=== PATIENT | female | born 1950 | race American Indian/Alaskan Native ===

== ENCOUNTER 2017-05-05 09:00 | Day surgery (SDC) | payer OTHER, MEDICARE ==
[~2017-05-05 09:00] MED LIST: ARA20T PO; CHOL100046 PO; CYCL-1 PO; ERGO500014 PO; LEVO25TA2 PO; NORCO10T PO; PANT40TA39 PO; PRE1T PO; RES15C PO
[2017-05-05] MEDS ORDERED: LIDOcaine 2% 5ml jelly ONE ×2 (09:36→09:58)
== END 2017-05-05 10:14 | disposition home or self-care (01) ==
LOC: WOUND CARE 09:00
PROVIDERS: ATTEND Surgery
DX: T87.89 Other complications of amputation stump (principal); E11.622 Type 2 diabetes mellitus with other skin ulcer; L89.893 Pressure ulcer of other site, stage 3; L98.491 Non-pressure chronic ulcer of skin of other sites limited to breakdown of skin; I87.2 Venous insufficiency (chronic) (peripheral); E11.40 Type 2 diabetes mellitus with diabetic neuropathy, unspecified; M19.90 Unspecified osteoarthritis, unspecified site; M81.0 Age-related osteoporosis without current pathological fracture; K21.9 Gastro-esophageal reflux disease without esophagitis; E03.9 Hypothyroidism, unspecified; F17.210 Nicotine dependence, cigarettes, uncomplicated; Y83.5 Amputation of limb(s) as the cause of abnormal reaction of the patient, or of later complication, without mention of misadventure at the time of the procedure
CPT/HCPCS: 11042; 87070; 87075; 87077; 87102; 87186; A6021; A6206; A6212

== ENCOUNTER 2017-05-12 09:00 | Day surgery (SDC) | payer OTHER, MEDICARE ==
[2017-05-12] MEDS ORDERED: LIDOcaine 2% 5ml jelly ONE (09:44)
[2017-05-12] MEDS ORDERED: DOXY-1 (15:23)
== END 2017-05-12 10:46 | disposition home or self-care (01) ==
LOC: WOUND CARE 09:00
PROVIDERS: ATTEND Surgery
DX: T87.89 Other complications of amputation stump (principal); E11.622 Type 2 diabetes mellitus with other skin ulcer; L98.491 Non-pressure chronic ulcer of skin of other sites limited to breakdown of skin; L89.893 Pressure ulcer of other site, stage 3; E11.40 Type 2 diabetes mellitus with diabetic neuropathy, unspecified; I87.2 Venous insufficiency (chronic) (peripheral); M19.90 Unspecified osteoarthritis, unspecified site; M81.0 Age-related osteoporosis without current pathological fracture; K21.9 Gastro-esophageal reflux disease without esophagitis; E03.9 Hypothyroidism, unspecified; F17.210 Nicotine dependence, cigarettes, uncomplicated; Y83.5 Amputation of limb(s) as the cause of abnormal reaction of the patient, or of later complication, without mention of misadventure at the time of the procedure
CPT/HCPCS: 97597; A6021; A6206; A6212

== ENCOUNTER 2017-05-19 08:20 | Outpatient (CLI) | payer OTHER, MEDICARE ==
[~2017-05-19 08:20] MED LIST changes: +DOXY-1
== END 2017-05-19 09:10 | disposition home or self-care (01) ==
LOC: WOUND CARE 08:20 → EDSTATUS 09:00 → WOUND CARE 09:10
PROVIDERS: ATTEND Surgery
DX: T87.89 Other complications of amputation stump (principal); E11.622 Type 2 diabetes mellitus with other skin ulcer; L98.491 Non-pressure chronic ulcer of skin of other sites limited to breakdown of skin; I87.2 Venous insufficiency (chronic) (peripheral); E11.40 Type 2 diabetes mellitus with diabetic neuropathy, unspecified; M19.90 Unspecified osteoarthritis, unspecified site; M81.0 Age-related osteoporosis without current pathological fracture; K21.9 Gastro-esophageal reflux disease without esophagitis; E03.9 Hypothyroidism, unspecified; F17.210 Nicotine dependence, cigarettes, uncomplicated; Y83.5 Amputation of limb(s) as the cause of abnormal reaction of the patient, or of later complication, without mention of misadventure at the time of the procedure
CPT/HCPCS: 99211; A6021; A6212

== ENCOUNTER 2017-05-26 08:56 | Day surgery (SDC) | payer OTHER, MEDICARE | END 2017-05-26 10:01 | disposition home or self-care (01) | LOC: WOUND CARE 08:56 | PROVIDERS: ATTEND Surgery | DX: T87.89 Other complications of amputation stump (principal); E11.622 Type 2 diabetes mellitus with other skin ulcer; L89.893 Pressure ulcer of other site, stage 3; L98.491 Non-pressure chronic ulcer of skin of other sites limited to breakdown of skin; I87.2 Venous insufficiency (chronic) (peripheral); E11.40 Type 2 diabetes mellitus with diabetic neuropathy, unspecified; M19.90 Unspecified osteoarthritis, unspecified site; M81.0 Age-related osteoporosis without current pathological fracture; K21.9 Gastro-esophageal reflux disease without esophagitis; E03.9 Hypothyroidism, unspecified; F17.210 Nicotine dependence, cigarettes, uncomplicated; Y83.5 Amputation of limb(s) as the cause of abnormal reaction of the patient, or of later complication, without mention of misadventure at the time of the procedure | CPT/HCPCS: 97597; A6021; A6206; A6212 ==

== ENCOUNTER 2017-06-02 08:45 | Day surgery (SDC) | payer OTHER, MEDICARE | END 2017-06-02 10:22 | disposition home or self-care (01) | LOC: WOUND CARE 08:45 | PROVIDERS: ATTEND Surgery | DX: T87.89 Other complications of amputation stump (principal); E11.622 Type 2 diabetes mellitus with other skin ulcer; L89.893 Pressure ulcer of other site, stage 3; L98.491 Non-pressure chronic ulcer of skin of other sites limited to breakdown of skin; I87.2 Venous insufficiency (chronic) (peripheral); E11.40 Type 2 diabetes mellitus with diabetic neuropathy, unspecified; M19.90 Unspecified osteoarthritis, unspecified site; M81.0 Age-related osteoporosis without current pathological fracture; K21.9 Gastro-esophageal reflux disease without esophagitis; E03.9 Hypothyroidism, unspecified; F17.210 Nicotine dependence, cigarettes, uncomplicated; Y83.5 Amputation of limb(s) as the cause of abnormal reaction of the patient, or of later complication, without mention of misadventure at the time of the procedure | CPT/HCPCS: 97597; A6021; A6212; A6222; A4456 ==

== ENCOUNTER 2017-06-09 09:00 | Day surgery (SDC) | payer OTHER, MEDICARE ==
[2017-06-09] MEDS ORDERED: LIDOcaine 2% 5ml jelly TOP ONE (10:20)
== END 2017-06-09 09:56 | disposition home or self-care (01) ==
LOC: WOUND CARE 09:00
PROVIDERS: ATTEND Surgery
DX: T87.89 Other complications of amputation stump (principal); E11.622 Type 2 diabetes mellitus with other skin ulcer; L89.893 Pressure ulcer of other site, stage 3; L98.491 Non-pressure chronic ulcer of skin of other sites limited to breakdown of skin; I87.2 Venous insufficiency (chronic) (peripheral); E11.40 Type 2 diabetes mellitus with diabetic neuropathy, unspecified; M19.90 Unspecified osteoarthritis, unspecified site; M81.0 Age-related osteoporosis without current pathological fracture; K21.9 Gastro-esophageal reflux disease without esophagitis; E03.9 Hypothyroidism, unspecified; F17.210 Nicotine dependence, cigarettes, uncomplicated; Y83.5 Amputation of limb(s) as the cause of abnormal reaction of the patient, or of later complication, without mention of misadventure at the time of the procedure
CPT/HCPCS: 97597; A6021; A6206; A6212

== ENCOUNTER 2017-06-16 09:44 | Day surgery (SDC) | payer OTHER, MEDICARE ==
[2017-06-16] MEDS ORDERED: LIDOcaine 2% 5ml jelly ONE (10:13)
== END 2017-06-16 11:24 | disposition home or self-care (01) ==
LOC: WOUND CARE 09:44
PROVIDERS: ATTEND Surgery
DX: T87.89 Other complications of amputation stump (principal); E11.622 Type 2 diabetes mellitus with other skin ulcer; L89.893 Pressure ulcer of other site, stage 3; L98.491 Non-pressure chronic ulcer of skin of other sites limited to breakdown of skin; I87.2 Venous insufficiency (chronic) (peripheral); E11.40 Type 2 diabetes mellitus with diabetic neuropathy, unspecified; M19.90 Unspecified osteoarthritis, unspecified site; M81.0 Age-related osteoporosis without current pathological fracture; K21.9 Gastro-esophageal reflux disease without esophagitis; E03.9 Hypothyroidism, unspecified; F17.210 Nicotine dependence, cigarettes, uncomplicated; Y83.5 Amputation of limb(s) as the cause of abnormal reaction of the patient, or of later complication, without mention of misadventure at the time of the procedure
CPT/HCPCS: 11042; A6021; A6206; A6212

== ENCOUNTER 2017-06-23 08:45 | Day surgery (SDC) | payer OTHER, MEDICARE ==
[2017-06-23] MEDS ORDERED: LIDOcaine 2% 5ml jelly ONE (09:43)
== END 2017-06-23 10:34 | disposition home or self-care (01) ==
LOC: WOUND CARE 08:45
PROVIDERS: ATTEND Surgery
DX: T87.89 Other complications of amputation stump (principal); E11.622 Type 2 diabetes mellitus with other skin ulcer; L89.893 Pressure ulcer of other site, stage 3; L98.492 Non-pressure chronic ulcer of skin of other sites with fat layer exposed; I87.2 Venous insufficiency (chronic) (peripheral); E11.40 Type 2 diabetes mellitus with diabetic neuropathy, unspecified; M19.90 Unspecified osteoarthritis, unspecified site; M81.0 Age-related osteoporosis without current pathological fracture; K21.9 Gastro-esophageal reflux disease without esophagitis; E03.9 Hypothyroidism, unspecified; F17.210 Nicotine dependence, cigarettes, uncomplicated; Y83.5 Amputation of limb(s) as the cause of abnormal reaction of the patient, or of later complication, without mention of misadventure at the time of the procedure
CPT/HCPCS: A6209; A6213; A6222; C5271; Q4102

== ENCOUNTER 2017-06-30 08:52 | Day surgery (SDC) | payer OTHER, MEDICARE ==
[2017-06-30] MEDS ORDERED: LIDOcaine 2% 5ml jelly ONE (09:31)
== END 2017-06-30 10:28 | disposition home or self-care (01) ==
LOC: WOUND CARE 08:52
PROVIDERS: ATTEND Surgery
DX: T87.89 Other complications of amputation stump (principal); E11.622 Type 2 diabetes mellitus with other skin ulcer; L89.893 Pressure ulcer of other site, stage 3; L98.492 Non-pressure chronic ulcer of skin of other sites with fat layer exposed; I87.2 Venous insufficiency (chronic) (peripheral); E11.40 Type 2 diabetes mellitus with diabetic neuropathy, unspecified; M19.90 Unspecified osteoarthritis, unspecified site; M81.0 Age-related osteoporosis without current pathological fracture; K21.9 Gastro-esophageal reflux disease without esophagitis; E03.9 Hypothyroidism, unspecified; F17.210 Nicotine dependence, cigarettes, uncomplicated; Y83.5 Amputation of limb(s) as the cause of abnormal reaction of the patient, or of later complication, without mention of misadventure at the time of the procedure
CPT/HCPCS: A6206; A6213; C5271; Q4102; A6250

== ENCOUNTER 2017-07-07 09:05 | Day surgery (SDC) | payer OTHER, MEDICARE ==
[2017-07-07] MEDS ORDERED: LIDOcaine 2% 5ml jelly ONE (09:31)
== END 2017-07-07 10:10 | disposition home or self-care (01) ==
LOC: WOUND CARE 09:05
PROVIDERS: ATTEND Surgery
DX: T87.89 Other complications of amputation stump (principal); E11.622 Type 2 diabetes mellitus with other skin ulcer; L89.893 Pressure ulcer of other site, stage 3; L98.492 Non-pressure chronic ulcer of skin of other sites with fat layer exposed; E11.40 Type 2 diabetes mellitus with diabetic neuropathy, unspecified; I87.2 Venous insufficiency (chronic) (peripheral); M19.90 Unspecified osteoarthritis, unspecified site; M81.0 Age-related osteoporosis without current pathological fracture; K21.9 Gastro-esophageal reflux disease without esophagitis; E03.9 Hypothyroidism, unspecified; F17.210 Nicotine dependence, cigarettes, uncomplicated; Y83.5 Amputation of limb(s) as the cause of abnormal reaction of the patient, or of later complication, without mention of misadventure at the time of the procedure
CPT/HCPCS: A6206; A6213; C5271; Q4102; A6250

== ENCOUNTER 2017-07-14 08:30 | Day surgery (SDC) | payer OTHER, MEDICARE ==
[2017-07-14] MEDS ORDERED: LIDOcaine 2% 5ml jelly ONE (09:34)
[2017-07-14] MEDS ORDERED: LIDOcaine 1%/PF (10mg/ml) 5ml vial ONE (09:48)
== END 2017-07-14 10:07 | disposition home or self-care (01) ==
LOC: WOUND CARE 08:30
PROVIDERS: ATTEND Surgery
DX: T87.89 Other complications of amputation stump (principal); E11.622 Type 2 diabetes mellitus with other skin ulcer; L89.893 Pressure ulcer of other site, stage 3; L98.492 Non-pressure chronic ulcer of skin of other sites with fat layer exposed; I87.2 Venous insufficiency (chronic) (peripheral); E11.40 Type 2 diabetes mellitus with diabetic neuropathy, unspecified; M19.90 Unspecified osteoarthritis, unspecified site; M81.0 Age-related osteoporosis without current pathological fracture; K21.9 Gastro-esophageal reflux disease without esophagitis; E03.9 Hypothyroidism, unspecified; F17.210 Nicotine dependence, cigarettes, uncomplicated; Y83.5 Amputation of limb(s) as the cause of abnormal reaction of the patient, or of later complication, without mention of misadventure at the time of the procedure
CPT/HCPCS: A6206; A6212; C5271; J2001; Q4102; A6250

== ENCOUNTER 2017-07-21 08:20 | Outpatient (CLI) | payer OTHER, MEDICARE ==
[2017-07-21] MEDS ORDERED: LIDOcaine 2% 5ml jelly ONE (09:37)
== END 2017-07-21 10:06 | disposition home or self-care (01) ==
LOC: WOUND CARE 08:20 → EDSTATUS 08:30 → WOUND CARE 10:06
PROVIDERS: ATTEND Surgery
DX: T87.89 Other complications of amputation stump (principal); E11.622 Type 2 diabetes mellitus with other skin ulcer; L89.893 Pressure ulcer of other site, stage 3; L98.491 Non-pressure chronic ulcer of skin of other sites limited to breakdown of skin; I87.2 Venous insufficiency (chronic) (peripheral); E11.40 Type 2 diabetes mellitus with diabetic neuropathy, unspecified; M19.90 Unspecified osteoarthritis, unspecified site; M81.0 Age-related osteoporosis without current pathological fracture; K21.9 Gastro-esophageal reflux disease without esophagitis; E03.9 Hypothyroidism, unspecified; F17.210 Nicotine dependence, cigarettes, uncomplicated; Y83.5 Amputation of limb(s) as the cause of abnormal reaction of the patient, or of later complication, without mention of misadventure at the time of the procedure
CPT/HCPCS: 99214; A6206; A6212

== ENCOUNTER 2017-07-28 08:08 | Day surgery (SDC) | payer OTHER, MEDICARE ==
[2017-07-28] MEDS ORDERED: LIDOcaine 2% 5ml jelly ONE ×2 (09:25→09:40)
== END 2017-07-28 10:05 | disposition home or self-care (01) ==
LOC: WOUND CARE 08:08
PROVIDERS: ATTEND Surgery
DX: T87.89 Other complications of amputation stump (principal); E11.622 Type 2 diabetes mellitus with other skin ulcer; L89.893 Pressure ulcer of other site, stage 3; L98.491 Non-pressure chronic ulcer of skin of other sites limited to breakdown of skin; I87.2 Venous insufficiency (chronic) (peripheral); E11.40 Type 2 diabetes mellitus with diabetic neuropathy, unspecified; M19.90 Unspecified osteoarthritis, unspecified site; M81.0 Age-related osteoporosis without current pathological fracture; K21.9 Gastro-esophageal reflux disease without esophagitis; E03.9 Hypothyroidism, unspecified; F17.210 Nicotine dependence, cigarettes, uncomplicated; Y83.5 Amputation of limb(s) as the cause of abnormal reaction of the patient, or of later complication, without mention of misadventure at the time of the procedure
CPT/HCPCS: A6021; A6209; A6222; C5271; Q4102; A6250

== ENCOUNTER 2017-08-04 08:00 | Day surgery (SDC) | payer OTHER, MEDICARE ==
[2017-08-04] MEDS ORDERED: LIDOcaine 2% 5ml jelly ONE (09:30)
== END 2017-08-04 10:21 | disposition home or self-care (01) ==
LOC: WOUND CARE 08:00
PROVIDERS: ATTEND Surgery
DX: T87.89 Other complications of amputation stump (principal); E11.622 Type 2 diabetes mellitus with other skin ulcer; L89.893 Pressure ulcer of other site, stage 3; L98.491 Non-pressure chronic ulcer of skin of other sites limited to breakdown of skin; I87.2 Venous insufficiency (chronic) (peripheral); E11.40 Type 2 diabetes mellitus with diabetic neuropathy, unspecified; M19.90 Unspecified osteoarthritis, unspecified site; M81.0 Age-related osteoporosis without current pathological fracture; K21.9 Gastro-esophageal reflux disease without esophagitis; E03.9 Hypothyroidism, unspecified; F17.210 Nicotine dependence, cigarettes, uncomplicated; Y83.5 Amputation of limb(s) as the cause of abnormal reaction of the patient, or of later complication, without mention of misadventure at the time of the procedure
CPT/HCPCS: 11042; A6206

== ENCOUNTER 2017-08-11 08:37 | Day surgery (SDC) | payer OTHER, MEDICARE ==
[2017-08-11] MEDS ORDERED: LIDOcaine 2% 5ml jelly ONE ×2 (09:28)
== END 2017-08-11 10:01 | disposition home or self-care (01) ==
LOC: WOUND CARE 08:37
PROVIDERS: ATTEND Surgery
DX: T87.89 Other complications of amputation stump (principal); E11.622 Type 2 diabetes mellitus with other skin ulcer; L89.893 Pressure ulcer of other site, stage 3; L98.491 Non-pressure chronic ulcer of skin of other sites limited to breakdown of skin; I87.2 Venous insufficiency (chronic) (peripheral); E11.40 Type 2 diabetes mellitus with diabetic neuropathy, unspecified; M19.90 Unspecified osteoarthritis, unspecified site; M81.0 Age-related osteoporosis without current pathological fracture; K21.9 Gastro-esophageal reflux disease without esophagitis; E03.9 Hypothyroidism, unspecified; F17.210 Nicotine dependence, cigarettes, uncomplicated; Y83.5 Amputation of limb(s) as the cause of abnormal reaction of the patient, or of later complication, without mention of misadventure at the time of the procedure
CPT/HCPCS: A6212; A6222; C5271; Q4102; C5272

== ENCOUNTER 2017-08-15 08:20 | Day surgery (SDC) | payer OTHER, MEDICARE ==
[2017-08-15] MEDS ORDERED: LIDOcaine 2% 5ml jelly ONE (09:39)
== END 2017-08-15 10:27 | disposition home or self-care (01) ==
LOC: WOUND CARE 08:20
PROVIDERS: ATTEND Surgery
DX: T87.89 Other complications of amputation stump (principal); E11.622 Type 2 diabetes mellitus with other skin ulcer; L89.893 Pressure ulcer of other site, stage 3; L98.491 Non-pressure chronic ulcer of skin of other sites limited to breakdown of skin; I87.2 Venous insufficiency (chronic) (peripheral); E11.40 Type 2 diabetes mellitus with diabetic neuropathy, unspecified; M19.90 Unspecified osteoarthritis, unspecified site; M81.0 Age-related osteoporosis without current pathological fracture; K21.9 Gastro-esophageal reflux disease without esophagitis; E03.9 Hypothyroidism, unspecified; F17.210 Nicotine dependence, cigarettes, uncomplicated; Y83.5 Amputation of limb(s) as the cause of abnormal reaction of the patient, or of later complication, without mention of misadventure at the time of the procedure
CPT/HCPCS: A6206; A6209; C5271; Q4102; A6250

== ENCOUNTER 2017-08-22 08:00 | Day surgery (SDC) | payer OTHER, MEDICARE ==
[2017-08-22] MEDS ORDERED: LIDOcaine 2% 5ml jelly ONE (09:42)
== END 2017-08-22 10:09 | disposition home or self-care (01) ==
LOC: WOUND CARE 08:00
PROVIDERS: ATTEND Surgery
DX: T87.89 Other complications of amputation stump (principal); E11.622 Type 2 diabetes mellitus with other skin ulcer; L89.893 Pressure ulcer of other site, stage 3; L98.491 Non-pressure chronic ulcer of skin of other sites limited to breakdown of skin; I87.2 Venous insufficiency (chronic) (peripheral); E11.40 Type 2 diabetes mellitus with diabetic neuropathy, unspecified; M19.90 Unspecified osteoarthritis, unspecified site; M81.0 Age-related osteoporosis without current pathological fracture; K21.9 Gastro-esophageal reflux disease without esophagitis; E03.9 Hypothyroidism, unspecified; F17.210 Nicotine dependence, cigarettes, uncomplicated; Y83.5 Amputation of limb(s) as the cause of abnormal reaction of the patient, or of later complication, without mention of misadventure at the time of the procedure
CPT/HCPCS: A6209; A6222; C5271; Q4102; A6250

== ENCOUNTER 2017-08-29 09:03 | Outpatient (CLI) | payer OTHER, MEDICARE ==
[2017-08-29] MEDS ORDERED: LIDOcaine 2% 5ml jelly ONE ×2 (09:33→09:51)
== END 2017-08-29 10:43 | disposition home or self-care (01) ==
LOC: WOUND CARE 09:03
PROVIDERS: ATTEND Surgery
DX: T87.89 Other complications of amputation stump (principal); E11.622 Type 2 diabetes mellitus with other skin ulcer; L89.893 Pressure ulcer of other site, stage 3; L98.491 Non-pressure chronic ulcer of skin of other sites limited to breakdown of skin; I87.2 Venous insufficiency (chronic) (peripheral); E11.40 Type 2 diabetes mellitus with diabetic neuropathy, unspecified; M19.90 Unspecified osteoarthritis, unspecified site; M81.0 Age-related osteoporosis without current pathological fracture; K21.9 Gastro-esophageal reflux disease without esophagitis; E03.9 Hypothyroidism, unspecified; F17.210 Nicotine dependence, cigarettes, uncomplicated; Y83.5 Amputation of limb(s) as the cause of abnormal reaction of the patient, or of later complication, without mention of misadventure at the time of the procedure
CPT/HCPCS: 99215; A6021; A6206

== ENCOUNTER 2017-09-05 08:20 | Day surgery (SDC) | payer OTHER, MEDICARE ==
[2017-09-05] MEDS ORDERED: LIDOcaine 2% 5ml jelly ONE (09:44)
== END 2017-09-05 10:22 | disposition home or self-care (01) ==
LOC: WOUND CARE 08:20
PROVIDERS: ATTEND Surgery
DX: T87.89 Other complications of amputation stump (principal); E11.622 Type 2 diabetes mellitus with other skin ulcer; L89.893 Pressure ulcer of other site, stage 3; L98.491 Non-pressure chronic ulcer of skin of other sites limited to breakdown of skin; I87.2 Venous insufficiency (chronic) (peripheral); E11.40 Type 2 diabetes mellitus with diabetic neuropathy, unspecified; M19.90 Unspecified osteoarthritis, unspecified site; M81.0 Age-related osteoporosis without current pathological fracture; K21.9 Gastro-esophageal reflux disease without esophagitis; E03.9 Hypothyroidism, unspecified; F17.210 Nicotine dependence, cigarettes, uncomplicated; Y83.5 Amputation of limb(s) as the cause of abnormal reaction of the patient, or of later complication, without mention of misadventure at the time of the procedure
CPT/HCPCS: 97597; A6021; A6206

== ENCOUNTER 2017-09-12 08:09 | Day surgery (SDC) | payer OTHER, MEDICARE ==
[2017-09-12] MEDS ORDERED: LIDOcaine 2% 5ml jelly ONE (09:47)
== END 2017-09-12 10:22 | disposition home or self-care (01) ==
LOC: WOUND CARE 08:09
PROVIDERS: ATTEND Surgery
DX: T87.89 Other complications of amputation stump (principal); E11.622 Type 2 diabetes mellitus with other skin ulcer; L89.893 Pressure ulcer of other site, stage 3; L98.491 Non-pressure chronic ulcer of skin of other sites limited to breakdown of skin; I87.2 Venous insufficiency (chronic) (peripheral); E11.40 Type 2 diabetes mellitus with diabetic neuropathy, unspecified; M19.90 Unspecified osteoarthritis, unspecified site; M81.0 Age-related osteoporosis without current pathological fracture; K21.9 Gastro-esophageal reflux disease without esophagitis; E03.9 Hypothyroidism, unspecified; F17.210 Nicotine dependence, cigarettes, uncomplicated; Y83.5 Amputation of limb(s) as the cause of abnormal reaction of the patient, or of later complication, without mention of misadventure at the time of the procedure
CPT/HCPCS: 97597; A6021; A6206; A6212

== ENCOUNTER 2017-09-19 08:08 | Day surgery (SDC) | payer OTHER, MEDICARE ==
[2017-09-19] MEDS ORDERED: LIDOcaine 2% 5ml jelly ONE (09:44)
== END 2017-09-19 10:14 | disposition home or self-care (01) ==
LOC: WOUND CARE 08:08
PROVIDERS: ATTEND Surgery
DX: T87.89 Other complications of amputation stump (principal); E11.622 Type 2 diabetes mellitus with other skin ulcer; L89.893 Pressure ulcer of other site, stage 3; L98.491 Non-pressure chronic ulcer of skin of other sites limited to breakdown of skin; I87.2 Venous insufficiency (chronic) (peripheral); E11.40 Type 2 diabetes mellitus with diabetic neuropathy, unspecified; M19.90 Unspecified osteoarthritis, unspecified site; M81.0 Age-related osteoporosis without current pathological fracture; K21.9 Gastro-esophageal reflux disease without esophagitis; E03.9 Hypothyroidism, unspecified; F17.210 Nicotine dependence, cigarettes, uncomplicated; Y83.5 Amputation of limb(s) as the cause of abnormal reaction of the patient, or of later complication, without mention of misadventure at the time of the procedure
CPT/HCPCS: 97597; A6206; A6212

== ENCOUNTER 2017-09-29 07:59 | Day surgery (SDC) | payer OTHER, MEDICARE ==
[2017-09-29] MEDS ORDERED: LIDOcaine 2% 5ml jelly ONE (09:43)
== END 2017-09-29 10:06 | disposition home or self-care (01) ==
LOC: WOUND CARE 07:59
PROVIDERS: ATTEND Surgery
DX: T87.89 Other complications of amputation stump (principal); E11.622 Type 2 diabetes mellitus with other skin ulcer; L89.893 Pressure ulcer of other site, stage 3; L98.491 Non-pressure chronic ulcer of skin of other sites limited to breakdown of skin; I87.2 Venous insufficiency (chronic) (peripheral); E11.40 Type 2 diabetes mellitus with diabetic neuropathy, unspecified; M19.90 Unspecified osteoarthritis, unspecified site; M81.0 Age-related osteoporosis without current pathological fracture; K21.9 Gastro-esophageal reflux disease without esophagitis; E03.9 Hypothyroidism, unspecified; F17.210 Nicotine dependence, cigarettes, uncomplicated; Y83.5 Amputation of limb(s) as the cause of abnormal reaction of the patient, or of later complication, without mention of misadventure at the time of the procedure
CPT/HCPCS: 97597; A6021; A6206; A6212

== ENCOUNTER 2018-02-10 09:02 | Day surgery (SDC) | payer OTHER, MEDICARE ==
[~2018-02-10] VITALS: Ht 160 cm; Wt 49.0 kg
[~2018-02-10 09:02] MED LIST changes: -ARA20T PO; +CALC-499 PO; -CHOL100046 PO; -CYCL-1 PO; -DOXY-1; +DULO-31 PO; -LEVO25TA2 PO; +LEVO50TA8 PO; -NORCO10T PO; +OMEP20CA10 PO; -RES15C PO; +ceFAZolin 1GM/D5W- ADD-VANTAGE 50 ML IV ONE; +famotidine 20mg tablet PO ONE; +ringers solution, lacted 1,000 ML IV SCH
[2018-02-10 09:30] VITALS: BP 143/86
[2018-02-10 10:51] LABS: ALANINE AMINOTRANSFERASE 13 U/L (12-78); ALBUMIN 3.2 G/DL (3.4-5.0); ALKALINE PHOSPHATASE 83 IU/L (46-116); ANION GAP 9 (8-16); CALCIUM 9.4 MG/DL (8.5-10.1); CHLORIDE 104 MMOL/L (99-107); POTASSIUM 3.9 MMOL/L (3.5-5.1); SODIUM 143 MMOL/L (135-145); TOTAL CARBON DIOXIDE 30.5 MMOL/L (24-32); eGFR > 90 ML/MIN
[2018-02-10 10:56] LABS: ALBUMIN/GLOBULIN RATIO 0.7 (1.1-1.5); ASPARTATE AMINO TRANSFERASE 23 U/L (10-37); BILIRUBIN,TOTAL 0.2 MG/DL (0.1-1.0); BLOOD UREA NITROGEN 11 MG/DL (7-18); GLUCOSE 91 MG/DL (70-104); TOTAL PROTEIN 7.7 G/DL (6.4-8.2)
[2018-02-10 11:33] LABS: BASOPHILS # (AUTO) 0.1 X10'3 (0-0.2); BASOPHILS % (AUTO) 0.8 % (0-1); EOSINOPHILS # (AUTO) 0.2 X10'3 (0-0.9); EOSINOPHILS % (AUTO) 2.4 % (0-6); HEMATOCRIT 36.3 % (35.0-45.0); HEMOGLOBIN 11.6 g/dl (12.0-16.0); LYMPHOCYTES # (AUTO) 0.9 X10'3 (1.1-4.8); LYMPHOCYTES % (AUTO) 12.1 % (21-51); MEAN CORPUSCULAR HEMOGLOBIN 26.8 PG (27.0-31.0); MEAN CORPUSCULAR VOLUME 83.5 FL (78-98); MEAN PLATELET VOLUME 7.8 FL (7.4-10.4); MONOCYTES # (AUTO) 0.5 X10'3 (0-0.9); MONOCYTES % (AUTO) 6.9 % (2-12); NEUTROPHILS # (AUTO) 5.6 X10'3 (1.8-7.7); NEUTROPHILS % (AUTO) 77.8 % (42-75); PLATELET COUNT 224 X10'3 (140-440); RED BLOOD COUNT 4.35 X10'6 (4.20-5.60); RED CELL DISTRIBUTION WIDTH 16.8 % (11.5-14.5); WHITE BLOOD COUNT 7.2 X10'3 (4.5-11.0)
[2018-02-10] MEDS ORDERED: LIDOcaine 0.5% W/epiNEPHrine 1:200,000 50ml vial IJ ONE (12:35)
[2018-02-10] MEDS ORDERED: fentaNYL/PF 50MCG/1 ML 2ML syringe ONE (12:50)
[2018-02-10] MEDS ORDERED: midazolam 2 mg/2 ml injection ONE (12:51)
[2018-02-10] MEDS ORDERED: BUPIVAcaine/PF 2.5mg/ml (0.25%) 10ml vial ONE (13:12)
[2018-02-10] MEDS ORDERED: ringers solution, lacted 1,000 ML IV SCH (13:13)
[2018-02-10] MEDS ORDERED: morphine 4 MG/ML inj SYRINge IV PRN ×2 (13:15)
[2018-02-10] MEDS ORDERED: ondansetron/PF 4mg/2ml inj IV PRN (13:15)
[2018-02-10] MEDS ORDERED: meperidine/PF 25mg/ml syringe IV PRN ×3 (13:15)
[2018-02-10] MEDS ORDERED: proCHLORperazine 10 MG/2 ml inj IV PRN (13:15)
[2018-02-10 13:43] VITALS: BP 118/68
[2018-02-10 13:53] VITALS: BP 136/76
[2018-02-10 14:03] VITALS: BP 141/76
[2018-02-10 14:13] VITALS: BP 132/72
[2018-02-10] MEDS ORDERED: LIDOcaine 0.5% (5mg/ml) 50ml vial ONE (14:31)
== END 2018-02-10 14:23 | disposition home or self-care (01) ==
LOC: PRE-OP 09:02 → PAS 14:23
PROVIDERS: ATTEND Orthopaedic Surgery Hand Surgery
DX: M06.842 Other specified rheumatoid arthritis, left hand (principal); M86.8X4 Other osteomyelitis, hand; Z88.2 Allergy status to sulfonamides; Z88.1 Allergy status to other antibiotic agents; Z88.8 Allergy status to other drugs, medicaments and biological substances; Z87.891 Personal history of nicotine dependence; Z98.890 Other specified postprocedural states
CPT/HCPCS: 26951; 36415; 80053; 85025; 93005; A6222; A6449; J0690; J2001; J2250; J3010; J3490; J7120; A7000

== ENCOUNTER 2018-12-06 08:24 | Day surgery (SDC) | payer MEDICARE, OTHER ==
[2018-12-04 16:27] LABS: BASOPHILS % (AUTO) 0.7 % (0-1); EOSINOPHILS # (AUTO) 0.2 X10'3 (0-0.9); LYMPHOCYTES % (AUTO) 14.6 % (21-51); MEAN CORPUSCULAR HEMOGLOBIN 29.4 PG (27.0-31.0); MEAN CORPUSCULAR HGB CONC 32.5 g/dL (33.0-36.5); MEAN CORPUSCULAR VOLUME 90.4 FL (78-98); MEAN PLATELET VOLUME 7.3 FL (7.4-10.4); MONOCYTES # (AUTO) 0.5 X10'3 (0-0.9); MONOCYTES % (AUTO) 7.9 % (2-12); NEUTROPHILS % (AUTO) 73.8 % (42-75); PRE OP HEMATOCRIT 35.2 % (35.0-45.0); PRE OP HEMOGLOBIN 11.5 g/dL (12.0-16.0); PRE OP PLATELET COUNT 421 X10'3 (140-440); RED CELL DISTRIBUTION WIDTH 15.5 % (11.5-14.5)
[2018-12-04 16:42] LABS: CLARITY,URINE CLOUDY (Clear); COLOR,URINE YELLOW (Yellow); GLUCOSE, URINE NEGATIVE (Neg); KETONES,URINE NEGATIVE (Neg); LEUKOCYTE ESTERASE ,URINE NEGATIVE (Neg); NITRITES, URINE POSITIVE (Neg); OCCULT BLOOD,URINE NEGATIVE (Neg); PROTEIN,URINE NEGATIVE (Neg); UROBILINOGEN,URINE 0.2 E.U/dL (0.2-1.0)
[2018-12-04 16:43] LABS: ALBUMIN 3.3 G/DL (3.4-5.0); ALKALINE PHOSPHATASE 78 IU/L (46-116); CALCIUM 8.5 MG/DL (8.5-10.1); CHLORIDE 108 MMOL/L (99-107); CREATININE 0.48 MG/DL (0.40-0.90); PRE OP ALT 23 U/L (30-65); PRE OP ANION GAP 9 (8-16); PRE OP POTASSIUM 3.9 MMOL/L (3.4-5.1); PRE OP SODIUM 143 MMOL/L (135-145); TOTAL CARBON DIOXIDE 26.2 MMOL/L (24-32); eGFR > 90 ML/MIN
[2018-12-04 16:50] LABS: UA COLLECTION TYPE CLN CATCH MIDSTREAM
[2018-12-04 16:52] LABS: ALBUMIN/GLOBULIN RATIO 0.7 (1.1-1.5); BLOOD UREA NITROGEN 10 MG/DL (7-18); BUN/CREATININE RATIO 20.8 (6.6-38.0); PRE OP AST 24 U/L (10-37); PRE OP BILIRUB, TOTAL 0.3 MG/DL (0.0-1.0); PRE OP GLUCOSE 88 MG/DL (70-104); TOTAL PROTEIN 8.2 G/DL (6.4-8.2)
[2018-12-04 16:58] LABS: MUCUS STRANDS NONE SEEN /LPF (Neg); SQUAMOUS EPITHELIAL CELL,UR MANY /LPF (FEW); TRANSITIONAL EPI CELLS,URINE FEW /HPF
[2018-12-04 16:59] LABS: BACTERIA,URINE 4+ /HPF (Neg); RBC,URINE 0-2 /HPF (0-2)
[2018-12-04 17:15] LABS: PRE OP INR 0.9 INR; PRE OP PROTIME 9.9 SECONDS (9.0-12.0)
[~2018-12-06] VITALS: Ht 157.5 cm; Wt 61.2 kg
[2018-12-06] VITALS (7 sets, daily range): BP systolic 115–134; BP diastolic 69–79
[~2018-12-06 08:24] MED LIST changes: +ASPI-611 PO; -CALC-499 PO; +CALCIUM CARBONATE PO; +CHOL100046 PO; +DENO60DI INJ; -ERGO500014 PO; +LEFL20TA PO; +MELA3TAB64 PO; -OMEP20CA10 PO; -PANT40TA39 PO; -ceFAZolin 1GM/D5W- ADD-VANTAGE 50 ML IV ONE; +cefazolin/dext.iso 2gm/50ml 50 ML IV ONE
[2018-12-06] MEDS ORDERED: BUPIVAcaine/PF 2.5 mg/ml (0.25%) 30ml vial ONE (14:25)
[2018-12-06] MEDS ORDERED: fentaNYL/PF 50MCG/1 ML 2ML syringe ONE (15:04)
[2018-12-06] MEDS ORDERED: sevoflurane 250ml liquid IH ONE (15:04)
[2018-12-06] MEDS ORDERED: dexamethasone sod phosphate 10mg/ml inj ONE (15:04)
[2018-12-06] MEDS ORDERED: midazolam 2 mg/2 ml injection ONE (15:04)
[2018-12-06] MEDS ORDERED: rocuronium 10mg/ml inj IV ONE (15:05)
[2018-12-06] MEDS ORDERED: propofol inj 20 ML IV ONE (15:05)
[2018-12-06] MEDS ORDERED: ringers solution, lacted 1,000 ML IV SCH (15:52)
[2018-12-06] MEDS ORDERED: morphine 4 MG/ML inj SYRINge IV PRN ×2 (15:55)
[2018-12-06] MEDS ORDERED: meperidine/PF 25mg/ml syringe IV PRN ×3 (15:55)
[2018-12-06] MEDS ORDERED: proCHLORperazine 10 MG/2 ml inj IV PRN (15:55)
[2018-12-06] MEDS ORDERED: ondansetron/PF 4mg/2ml inj IV PRN (15:55)
[2018-12-06] MEDS ORDERED: neomy sulf/bacitrac zn/polymixin b oint 14.2 gm tube TP ONE (16:06)
[2018-12-06] MEDS ORDERED: neostigmine methylsulfate 1 MG/ML 10ml vial ONE (16:30)
[2018-12-06] MEDS ORDERED: glycopyrrolate 0.2mg/ml inj ONE (16:31)
--- NOTE | 2018-12-06 16:33 | NUR ---
Received from OR via , accompanied by Anesthesiologist DR. [place] and report given by Anesthesiolgist. A&OX4, VSS CHARTED, ALP AQUILINO NICOLAS. IVF INFUSING ORDERED, WILL CONTINUE TO MONITOR.
[2018-12-06] MEDS ORDERED: acetaminophen 1,000mg/100ml IV 100 ML IV ONE (17:00)
[2018-12-06] MEDS ORDERED: HYDROcodone/acetaminophen 5mg/325mg tablet PO ONE (17:50)
--- NOTE | 2018-12-06 18:36 | NUR ---
PATIENT DC CRITERIA MET, DC INSTRUCTIONS GIVEN TO PATIENT AND , VERBALIZED UNDERSTANDING. PIV DC'D CATH TIP INTACT. PATIENT VOIDED 200 CC. DC'D TO PERSONAL VEHICLE VIA WC WITH ALL PERSONAL BELONGINGS ACCOMPANIED BY STAFF AND FAMILY.
== END 2018-12-06 18:33 | disposition home or self-care (01) ==
LOC: PAS 08:24
PROVIDERS: ATTEND Surgery
DX: K43.9 Ventral hernia without obstruction or gangrene (principal); M06.9 Rheumatoid arthritis, unspecified; M19.90 Unspecified osteoarthritis, unspecified site; G47.00 Insomnia, unspecified; F32.9 Major depressive disorder, single episode, unspecified; E11.40 Type 2 diabetes mellitus with diabetic neuropathy, unspecified; Z87.891 Personal history of nicotine dependence; Z99.3 Dependence on wheelchair; Z86.14 Personal history of Methicillin resistant Staphylococcus aureus infection; Z91.09 Other allergy status, other than to drugs and biological substances; Z88.2 Allergy status to sulfonamides; Z79.82 Long term (current) use of aspirin; Z79.899 Other long term (current) drug therapy; Z79.01 Long term (current) use of anticoagulants
CPT/HCPCS: 36415; 49654; 80053; 81001; 82948; 85025; 85610; 85730; 93005; C1758; C1781; J0131; J1100; J2175; J2250; J2704; J2710; J3010; J3490; J7120; A4215; A4618; A7000

== ENCOUNTER 2019-03-11 03:48 | Emergency (ER) | payer MEDICARE, OTHER ==
[~2019-03-11] VITALS: Ht 152.4 cm; Wt 50.0 kg
[~2019-03-11 03:48] MED LIST changes: -cefazolin/dext.iso 2gm/50ml 50 ML IV ONE; -famotidine 20mg tablet PO ONE; -ringers solution, lacted 1,000 ML IV SCH
[2019-03-11] MEDS ORDERED: HYDROcodone/acetaminophen 5mg/325mg tablet PO ONE (04:10)
--- NOTE | 2019-03-11 04:51 | NUR ---
Foam dressing placed to L buttock pressure injury.
[2019-03-11 05:00] VITALS: BP 128/75
[2019-03-14] MEDS ORDERED: HYDR-3965 PO (22:20)
== END 2019-03-11 05:02 | disposition home or self-care (01) ==
LOC: ER 03:48
DX: L89.319 Pressure ulcer of right buttock, unspecified stage (principal); K21.9 Gastro-esophageal reflux disease without esophagitis; E03.9 Hypothyroidism, unspecified; G89.29 Other chronic pain; M06.9 Rheumatoid arthritis, unspecified; Z98.890 Other specified postprocedural states; Z88.2 Allergy status to sulfonamides; Z89.512 Acquired absence of left leg below knee; Z79.82 Long term (current) use of aspirin; Z79.899 Other long term (current) drug therapy
CPT/HCPCS: 99283